=== PATIENT | female | born 1990 | race Caucasian/White ===

== ENCOUNTER 2022-08-12 05:36 | Emergency (ER) | payer BC, SELFPAY ==
[2022-08-12 06:01] VITALS: BP 115/74; PULSE 66; RESP 18; TEMP 36.5; O2SAT 100; BMI 26.6
[2022-08-12 06:12] LABS: Add Manual Diff / Slide Review NO; Basophils Absolute Auto 100 /uL (0-100); Basophils Percent Auto 0.8 % (0-2); Eosinophils Absolute Auto 100 /uL (0-450); Eosinophils Percent Auto 1.1 % (2-4); Hematocrit 34.8 % (36-46); Hemoglobin 12.2 g/dL (12.0-16.0); Lymphocytes Absolute Auto 900 /uL (1100-4500); Lymphocytes Percent Auto 13.5 % (25-40); Mean Corpuscular HGB Conc 34.9 % (30-36); Mean Corpuscular Hemoglobin 30.8 PG (26-34); Mean Corpuscular Volume 88.4 fL (80-100); Monocytes Absolute Auto 300 /uL (0-900); Monocytes Percent Auto 4.9 % (3-14); Neutrophils Absolute Auto 5500 /uL (1500-7000); Neutrophils Percent Auto 79.7 % (50-75); Platelet Count 184 X10^3/uL (150-400); Red Blood Cell Count 3.94 X10^6/uL (4.0-5.2); Red Cell Distribution Width 13.8 % (11.6-14.8); White Blood Cell Count 6.9 X10^3/uL (4.5-11.0)
--- NOTE | 2022-08-12 06:15 | DI.US.S_ITS ---
PROCEDURE: US PELVIC COMPLETE INDICATIONS: RIGHT ADNEXAL PAIN TECHNIQUE: Real-time scanning was performed of the pelvic organs, with image documentation. Additional endovaginal scanning was necessary due to incomplete visualization of the adnexal and endometrial structures by transabdominal scanning. COMPARISON: None. FINDINGS: Uterus: Uterus is anteverted and normal in size at 8.7 x 4.3 x 6 point cm. The myometrium is heterogeneous secondary to several small myometrial masses, ranging in size from 1.4 cm to 2.1 cm. There is a small pedunculated fibroid arising from the posterior aspect of the uterus. The endometrium measures 6.5 mm combined thickness. Normal vascularity in the uterus. Ovaries: The right ovary measures 4.8 x 3.1 x 2.5 cm, with a calculated ovarian volume of 19.2 cc. The left ovary measures 3.6 x 5.5 x 3.0 cm, with a calculated ovarian volume of 31.3 cc. The right ovary has a normal follicular echotexture and vascular flow. The left ovary contains a heterogeneous ovoid mass measuring 3.6 x 2.6 x 3.5 cm. It demonstrates mainly homogeneous low level internal echoes with several scattered irregular intrinsic areas of hyperechogenicity, some demonstrating dirty posterior shadow. There is normal vascular flow within the left ovary. Less than 12 follicles can be seen in each ovary. Other: No pathologic free abdominal or pelvic fluid. Specifically, no significant left adnexal fluid. IMPRESSION: 1. 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 2. Fibroid uterus. 3. Normal right ovary. 4. No evidence of ovarian torsion. 5. Final interpretation is concordant with preliminary report. We strive to produce accurate, complete, and clear reports of imaging services. To assist us in improving patient care, this report was composed using standard report templates and voice recognition software. Therefore, it may contain abnormal punctuation, insertions and/or omissions. Occasional wrong-word or sound-alike substitutions may occur. Though we review the report and make efforts to correct it, we do recommend that the report be read carefully in proper context to recognize any text inaccuracies. Dictated by: Steph Pruitt M.D. on 08/12/2022 at 7:49 Approved by: Steph Pruitt M.D. on 08/12/2022 at 8:10
--- NOTE | 2022-08-12 06:16 | ED_ITS ---
HPI - General Adult <Andrei Aquino DO - Last Filed: 08/12/22 18:21> General Chief complaint: Abdominal Pain Stated complaint: abd pain majority right side Time Seen by Provider: 08/12/22 06:02 Source: patient Mode of arrival: Ambulatory History of Present Illness HPI narrative: 32-year-old female who is approximately 3 days into her menstrual cycle who is here for evaluation of right adnexa pain. She states that the pain that she is having feels like her menstrual cycle pain but is worse. It got worse at about 0200 hours in the morning. Woke her from sleep. She did take 800 mg of ibuprofen prior to arrival when she thinks it has eased up somewhat. She has also had multiple bowel movements since the onset of the pain. She states that it it was not diarrhea. She denies any urinary symptoms. She is having vaginal bleeding. 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 Is followed by architecture intern. She states that it has always been small and has not required surgery. Related Data Allergies Allergy/AdvReac Type Severity Reaction Status Date / Time No Known Drug Allergies Allergy Verified 08/12/22 06:01 Review of Systems <Andrei Aquino DO - Last Filed: 08/12/22 18:21> Review of Systems ROS Unobtainable: All systems reviewed & are unremarkable except as noted in HPI and below Patient History <Andrei Aquino DO - Last Filed: 08/12/22 18:21> Medical History Ovarian teratoma Social History Smoking Status: Never smoker Smoking Status: Never smoker alcohol intake frequency: 0-2 drinks per day Substance Use Type: does not use Exam <DO Christopher Adams Last Filed: 08/12/22 18:21> Initial Vital Signs Initial Vital Signs: Vital Signs Temperature 97.7 F 08/12/22 06:01 Pulse Rate 66 08/12/22 06:01 Respiratory Rate 18 08/12/22 06:01 Blood Pressure 115/74 08/12/22 06:01 Pulse Oximetry 100 08/12/22 06:01 Oxygen Delivery Method 08/12/22 06:01 HENMT Head: normal to inspection and normocephalic Resp Effort & Inspection: normal respiratory effort Cardio Rate: regular rate GI Palpation: soft, No firm and tender (Right lower quadrant/right adnexa) Back/Spine/Pelvis Back: No CVA tenderness Skin General: no rashes or lesions noted Neuro General: patient alert, patient awake and moves all extremities Speech: speech normal Gait: normal gait Extrem General: normal to inspection and capillary refill normal Psych Appearance: grossly normal and well kempt <Tamara Farmer DO - Last Filed: 08/12/22 08:11> Initial Vital Signs Initial Vital Signs: Vital Signs Temperature 97.7 F 08/12/22 06:01 Pulse Rate 66 08/12/22 06:01 Respiratory Rate 18 08/12/22 06:01 Blood Pressure 115/74 08/12/22 06:01 Pulse Oximetry 100 08/12/22 06:01 Oxygen Delivery Method 08/12/22 06:01 Course <DO Christopher Adams Last Filed: 08/12/22 18:21> Orders Ordered: Discontinued Medications Acetaminophen (Acetaminophen 325 Mg Tablet) 975 mg PO NOW ONE Stop: 08/12/22 06:16 Last Admin: 08/12/22 06:32 Dose: 975 mg Documented By: JAMAL Vital Signs Vital signs: Vital Signs - 8 hr 08/12/22 06:01 Temperature 97.7 F Pulse Rate 66 Respiratory Rate 18 Blood Pressure 115/74 Pulse Oximetry 100 Oxygen Delivery Method Room Air <DO Christopher Hudson Last Filed: 08/12/22 08:11> Orders Ordered: Discontinued Medications Acetaminophen (Acetaminophen 325 Mg Tablet) 975 mg PO NOW ONE Stop: 08/12/22 06:16 Last Admin: 08/12/22 06:32 Dose: 975 mg Documented By: MLM Vital Signs Vital signs: Vital Signs - 8 hr 08/12/22 06:01 Temperature 97.7 F Pulse Rate 66 Respiratory Rate 18 Blood Pressure 115/74 Pulse Oximetry 100 Oxygen Delivery Method Room Air Medical Decision Making <DO Christopher Adams Last Filed: 08/12/22 18:21> Lab Data Result diagrams: 08/12/22 05:55 08/12/22 05:55 Labs: Lab Results 08/12/22 08/12/22 08/12/22 Range/Units 05:55 05:55 05:55 WBC 6.9 (4.5-11.0) X10^3/uL RBC 3.94 L (4.0-5.2) X10^6/uL Hgb 12.2 (12.0-16.0) g/dL Hct 34.8 L (36-46) % MCV 88.4 (80-100) fL MCH 30.8 (26-34) PG MCHC 34.9 (30-36) % RDW 13.8 (11.6-14.8) % Plt Count 184 (150-400) X10^3/uL Neut % (Auto) 79.7 H (50-75) % Lymph % (Auto) 13.5 L (25-40) % [place] % (Auto) 4.9 (3-14) % Eos % (Auto) 1.1 L (2-4) % Baso % (Auto) 0.8 (0-2) % Neut # (Auto) 5500 (3340-8635) /uL Lymph # (Auto) 900 L (9774-1775) /uL [place] # (Auto) 300 (0-900) /uL Eos # (Auto) 100 (0-450) /uL Baso # (Auto) 100 (0-100) /uL Sodium 141 (137-145) mmol/L Potassium 3.9 (3.4-5.1) mmol/L Chloride 109 H (98-107) mmol/L Carbon Dioxide 23 (22-32) mmol/L BUN 12 (7-17) mg/dL Creatinine 0.79 (0.52-1.04) mg/dL Estimated GFR > 60 (>60) mL/min BUN/Creatinine Ratio 15.2 (6-22) Glucose 141 H (70-100) mg/dL Calcium 8.3 L (8.4-10.2) mg/dL Total Bilirubin 0.2 (0.2-1.3) mg/dL AST 21 (14-36) IU/L ALT 15 (<35) IU/L Alkaline Phosphatase 64 (38-126) U/L Total Protein 6.6 (6.3-8.2) g/dL Albumin 3.8 (3.5-5.0) g/dL Globulin 2.8 (1.7-4.1) g/dL Albumin/Globulin Ratio 1.4 (1.0-2.8) Lipase 88 (23-300) U/L Serum , Qual Negative (Negative) Urine Dip Bedside Urine Glucose Negative Bedside Urine Bilirubin - Negative Bedside Urine Ketone - Negative Urine Specific [place] 1.030 Bedside Urine Occult Blood +++ Bedside Urine pH 6.0 Bedside Urine Protein - Negative Bedside Urine Urobilinogen - Negative Bedside Urine Nitrite - Negative Bedside Urine Leukocytes - Negative Esterase Point of care testing: Urine Dip Bedside Urine Glucose Negative Bedside Urine Bilirubin - Negative Bedside Urine Ketone - Negative Urine Specific [place] 1.030 Bedside Urine Occult Blood +++ Bedside Urine pH 6.0 Bedside Urine Protein - Negative Bedside Urine Urobilinogen - Negative Bedside Urine Nitrite - Negative Bedside Urine Leukocytes - Negative Esterase MDM Narrative Medical decision making narrative: Care turned over to Dr. Farmer to follow-up on ultrasound and disposition. <Tamara Farmer, - Last Filed: 08/12/22 08:11> Lab Data Labs: Lab Results 08/12/22 08/12/22 08/12/22 Range/Units 05:55 05:55 05:55 WBC 6.9 (4.5-11.0) X10^3/uL RBC 3.94 L (4.0-5.2) X10^6/uL Hgb 12.2 (12.0-16.0) g/dL Hct 34.8 L (36-46) % MCV 88.4 (80-100) fL MCH 30.8 (26-34) PG MCHC 34.9 (30-36) % RDW 13.8 (11.6-14.8) % Plt Count 184 (150-400) X10^3/uL Neut % (Auto) 79.7 H (50-75) % Lymph % (Auto) 13.5 L (25-40) % [place] % (Auto) 4.9 (3-14) % Eos % (Auto) 1.1 L (2-4) % Baso % (Auto) 0.8 (0-2) % Neut # (Auto) 5500 (0282-3478) /uL Lymph # (Auto) 900 L (4645-1268) /uL [place] # (Auto) 300 (0-900) /uL Eos # (Auto) 100 (0-450) /uL Baso # (Auto) 100 (0-100) /uL Sodium 141 (137-145) mmol/L Potassium 3.9 (3.4-5.1) mmol/L Chloride 109 H (98-107) mmol/L Carbon Dioxide 23 (22-32) mmol/L BUN 12 (7-17) mg/dL Creatinine 0.79 (0.52-1.04) mg/dL Estimated GFR > 60 (>60) mL/min BUN/Creatinine Ratio 15.2 (6-22) Glucose 141 H (70-100) mg/dL Calcium 8.3 L (8.4-10.2) mg/dL Total Bilirubin 0.2 (0.2-1.3) mg/dL AST 21 (14-36) IU/L ALT 15 (<35) IU/L Alkaline Phosphatase 64 (38-126) U/L Total Protein 6.6 (6.3-8.2) g/dL Albumin 3.8 (3.5-5.0) g/dL Globulin 2.8 (1.7-4.1) g/dL Albumin/Globulin Ratio 1.4 (1.0-2.8) Lipase 88 (23-300) U/L Serum , Qual Negative (Negative) Urine Dip Bedside Urine Glucose Negative Bedside Urine Bilirubin - Negative Bedside Urine Ketone - Negative Urine Specific [place] 1.030 Bedside Urine Occult Blood +++ Bedside Urine pH 6.0 Bedside Urine Protein - Negative Bedside Urine Urobilinogen - Negative Bedside Urine Nitrite - Negative Bedside Urine Leukocytes - Negative Esterase Point of care testing: Urine Dip Bedside Urine Glucose Negative Bedside Urine Bilirubin - Negative Bedside Urine Ketone - Negative Urine Specific [place] 1.030 Bedside Urine Occult Blood +++ Bedside Urine pH 6.0 Bedside Urine Protein - Negative Bedside Urine Urobilinogen - Negative Bedside Urine Nitrite - Negative Bedside Urine Leukocytes - Negative Esterase [facility] Narrative Medical decision making narrative: Care turned over to Dr. Farmer to follow-up on ultrasound and disposition. Dr. Farmer 08/12/22 0807: Patient seen independently evaluated by myself. Patient has benign abdominal exam, no increase in pain with palpation of the abdomen including the right lower quadrant. Final ultrasound report is pending but patient has a complex teratoma known to herself on the left side patient had believed it was on her right at 3.6 x 2.6 x 3.5 cm, normal vascularity and flow, patient does have fibroids. Patient had Tylenol for pain which she states has improved but not completely resolved she states this feels like her menstrual pain but a little bit worse. She does still have her appendix. She defers additional workup such as CT to evaluate for appendicitis or other intra- abdominal process. Patient plan for discharge home, strict return precautions can do ibuprofen/Tylenol [id number]. Discharge Plan Departure Patient Disposition: Home Clinical Impression: Pelvic pain Instructions: DI for Abdominal Pain-Adult Activity Restrictions/Additional Instructions: Your imaging today does show your teratoma on the left side it is 3.6 x 2.6 x 3.5 cm. You can continue with Tylenol/ibuprofen as needed for pain. If you have rapidly worsening pain particularly in the right lower quadrant, fevers, persistent vomiting, lightheadedness or passing out, black or bloody stools or other new or concerning changes please return for recheck. Visit Report Forms: Patient Portal/API
[2022-08-12 06:18] LABS: Alanine Aminotransferase 15 IU/L (<35); Albumin 3.8 g/dL (3.5-5.0); Albumin Globulin Ratio 1.4 (1.0-2.8); Alkaline Phosphatase 64 U/L (38-126); Aspartate Aminotransferase 21 IU/L (14-36); BUN Creatinine Ratio 15.2 (6-22); Bilirubin Total 0.2 mg/dL (0.2-1.3); Blood Urea Nitrogen 12 mg/dL (7-17); Calcium 8.3 mg/dL (8.4-10.2); Carbon Dioxide 23 mmol/L (22-32); Chloride 109 mmol/L (98-107); Estimated Glomerular Filt Rate > 60 mL/min (>60); Globulin 2.8 g/dL (1.7-4.1); Glucose 141 mg/dL (70-100); HEMOLYSIS < 15 (0-50); Lipase 88 U/L (23-300); Potassium 3.9 mmol/L (3.4-5.1); Sodium 141 mmol/L (137-145); Total Protein 6.6 g/dL (6.3-8.2)
[2022-08-12 06:24] LABS: Pregnancy Test Serum,Qual Negative (Negative)
[2022-08-12] MEDS: ACETAMINOPHEN 325 MG TABLET 975 MG PO (06:32)
[2022-08-12 06:33] VITALS: PULSE 68; O2SAT 97
[2022-08-12 08:35] VITALS: BP 115/61; PULSE 58; RESP 18; O2SAT 100
== END 2022-08-12 08:36 | disposition home or self-care (01) ==
PROVIDERS: Emergency Medicine; Emergency Provider Emergency Medicine
DX: R10.2 Pelvic and perineal pain (principal)
CPT/HCPCS: 76830; 76856; 80053; 81003; 83690; 84703; 85025; 93975; 99283; 99284